=== PATIENT | female | born 1985 | race Two or more races ===

== ENCOUNTER → 2017-02-04 | Outpatient (CLI) | payer OTHER ==
--- NOTE | 2017-02-04 14:56 | RAD ---
DATE: 02/04/2017 EXAM: BREAST RIGHT HISTORY: Palpable abnormality in the right breast, patient is currently breast-feeding. COMPARISON: None. FINDINGS: In the area of palpable concern in the right breast at the 12:00 position and 6 cm from the nipple, there is no suspicious mass or fluid collection. IMPRESSION: In the area of palpable concern at the right breast at 12:00 position, no suspicious mass or fluid collection BI-RADS CATEGORY: 1 NEGATIVE RECOMMENDED FOLLOW-UP: CLIN FOLLOW UP IMAGING CLINICALLY INDICATED Mammography is a sensitive method for finding small breast cancers, but it does not detect them all and is not a substitute for careful clinical examination. A negative mammogram does not negate a clinically suspicious finding and should not result in delay in biopsying a clinically suspicious abnormality. "Our facility is accredited by the [employer] Mammography Program."
== END | disposition home or self-care (01) ==
LOC: US 13:08
PROVIDERS: ATTEND Nurse Practitioner Family
DX: N63 Unspecified lump in breast (principal)
CPT/HCPCS: 76641